=== PATIENT | female | born 1955 | race Caucasian/White ===

== ENCOUNTER 2024-08-28 09:11 | Emergency (ER) | payer MEDICARE ==
[~2024-08-28] VITALS: Ht 157.5 cm; Wt 86.2 kg
[2024-08-28 09:23] VITALS: PULSE 93; RESP 20; TEMP 98.1
[2024-08-28 10:47] VITALS: BP 118/53; PULSE 73; RESP 18; O2SAT 100
== END 2024-08-28 10:37 | disposition home or self-care (01) ==
LOC: ER 09:32
DX: M25.531 Pain in right wrist (principal); M79.641 Pain in right hand; W18.39XA Other fall on same level, initial encounter; Y93.01 Activity, walking, marching and hiking; Y92.89 Other specified places as the place of occurrence of the external cause; I10 Essential (primary) hypertension; E78.5 Hyperlipidemia, unspecified; K21.9 Gastro-esophageal reflux disease without esophagitis
CPT/HCPCS: 99283